=== PATIENT | female | born 1960 ===

== ENCOUNTER 2024-11-23 18:19 | Outpatient (REF) | payer MEDICAID, SELFPAY ==
[2024-11-23 16:30] LABS: Abs Immature Grans 0.04 10^3/uL (0.0-0.06); HCT 50.2 % (36.0-46.0); HGB 17.1 g/dL (11.2-15.7); Immature Grans % 0.4 %; MCH 32.8 pg (27.0-33.0); MCHC 34.1 % (32.0-36.0); MCV 96 fL (80-95); MPV 10.4 fL (8.0-11.0); Platelet Count 244 10^3/uL (130-400); RBC 5.21 10^6/uL (3.93-5.22); RDW 12.1 % (11.7-14.6); RDW-SD 43.3 fL; WBC 10.30 10^3/uL (4.4-10.8)
[2024-11-23 16:47] LABS: ALT 50 U/L (14-59); AST 34 U/L (15-37); Albumin 3.7 g/dL (3.4-5.0); Alkaline Phosphatase 116 U/L (46-116); Anion Gap 8.1 mmol/L (3-11); BUN 23 mg/dL (7-18); Bilirubin, Total 0.3 mg/dL (0.2-1.0); CO2 24.9 mmol/L (21.0-32.0); Calcium 10.5 mg/dL (8.5-10.1); Calculated LDL 159 mg/dL (<100); Chloride 107 mmol/L (98-107); Cholesterol 268 mg/dL (<200); Estimated GFR 56.46 (mL/min/1.73m2); Glucose 120 mg/dL (74-106); HDL Cholesterol 58 mg/dL (>or=50); Potassium 4.2 mmol/L (3.5-5.1); Sodium 140 mmol/L (136-145); TSH (W/Ref FT4) 0.82 uIU/mL (0.36-3.74); Total Protein 7.3 g/dL (6.4-8.2); Triglyceride 257 mg/dL (<150)
[2024-11-23 16:56] LABS: Hemoglobin A1C 5.7 % (<5.7)
== END 2024-11-23 18:20 | disposition home or self-care (01) ==
LOC: NCHCN 18:19
PROVIDERS: Visit Provider Nurse Practitioner Family
DX: Z00.00 Encounter for general adult medical examination without abnormal findings (principal)
CPT/HCPCS: 80053; 80061; 83036; 84443; 85025

== ENCOUNTER 2024-12-19 14:56 | Outpatient (REF) | payer MEDICAID, SELFPAY ==
[2024-12-19 16:41] LABS: HCT 50.2 % (36.0-46.0); HGB 17.2 g/dL (11.2-15.7); MCH 32.4 pg (27.0-33.0); MCHC 34.3 % (32.0-36.0); MCV 95 fL (80-95); MPV 10.3 fL (8.0-11.0); Platelet Count 244 10^3/uL (130-400); RBC 5.31 10^6/uL (3.93-5.22); RDW 12.0 % (11.7-14.6); RDW-SD 42.2 fL; WBC 10.67 10^3/uL (4.4-10.8)
[2024-12-19 17:49] LABS: ALT 60 U/L (14-59); AST 34 U/L (15-37); Albumin 3.6 g/dL (3.4-5.0); Alkaline Phosphatase 113 U/L (46-116); Anion Gap 9.8 mmol/L (3-11); BUN 22 mg/dL (7-18); Bilirubin, Total 0.6 mg/dL (0.2-1.0); CO2 26.2 mmol/L (21.0-32.0); Calcium 10.5 mg/dL (8.5-10.1); Chloride 105 mmol/L (98-107); Estimated GFR 63.30 (mL/min/1.73m2); Glucose 133 mg/dL (74-106); Potassium 4.9 mmol/L (3.5-5.1); Sodium 141 mmol/L (136-145); Total Protein 7.0 g/dL (6.4-8.2)
== END 2024-12-19 14:57 | disposition home or self-care (01) ==
LOC: NCHCN 14:56
PROVIDERS: PCP Nurse Practitioner Family; Visit Provider Nurse Practitioner Family
DX: R79.89 Other specified abnormal findings of blood chemistry (principal); E83.52 Hypercalcemia
CPT/HCPCS: 80053; 85027; 83970

== ENCOUNTER 2025-01-25 04:32 | Outpatient (CLI) | payer MEDICAID, SELFPAY ==
--- NOTE | 2025-01-25 | DI.CT_ITS ---
Exam(s) CT ABDOMEN WO/W EXAM: CT ABDOMEN WO/W CLINICAL HISTORY: FATTY LIVER K76.0 HEPATIC STEATOSIS LIVER LESION TECHNIQUE: Imaging Protocol: Axial computed tomography images with coronal and sagittal reformatted images were created and reviewed CONTRAST MATERIAL: Intravenous: Omnipaque 350 contrast volume:75 mL Oral: No COMPARISON: No exams were available for comparison FINDINGS: ABDOMEN: Lung Bases: Prominent three-vessel coronary artery calcification is present. Liver: There is diffuse decreased attenuation of the liver consistent with fatty infiltration. Focal fatty sparing is seen around the gallbladder fossa. There are 2 round lesions the dome of the right lobe of the liver. The larger measures 7 mm and is more medial. The smaller measures 6 mm and is more lateral. (Series 14, image 11). They follow the aorta on all sequences. These likely reflect benign lesion such as hemangiomas. There are no suspicious hepatic masses present. The liver measures 18 cm long. Portal, Superior Mesenteric, and Splenic Veins: Unremarkable. Gallbladder and Biliary Tract: No radiodense calculus or dilation. Pancreas: There is largely fatty replacement of the pancreatic head. There is no evidence of a pancreatic mass or peripancreatic fluid collection. Spleen: Normal. Adrenals: No masses seen. Kidneys: Normal size, contour and axis. No radiodense stones or obstructive uropathy. There is a 0.9 x 0.8 cm fat density lesion in the right renal cortex consistent with a benign lesion such as a angiomyolipoma. There are no suspicious renal lesions. There are few tiny hypodensities seen in the kidneys. They are too small for further characterization but likely reflect small cysts. No follow-up is recommended. Abdominal Aorta: Abdominal portion non-dilated. Atherosclerotic calcification is present. Bowel: There is diverticulosis in the colon without evidence of acute diverticulitis. There is no evidence of bowel obstruction or bowel wall thickening. Peritoneal Cavity: No ascites, collection or mesenteric inflammatory response. No free air. Lymph Nodes: Within normal limits. Bones: Within normal limits for the patient's age. Soft Tissues: There is a small fat containing umbilical hernia. IMPRESSION: 1. Hepatic steatosis and mild hepatomegaly. 2. Two enhancing lesions in the right lobe. The characteristics are suggestive of a benign lesion such as hemangiomas. 3. Colonic diverticulosis without evidence of acute diverticulitis. 4. 0.9 cm fat density right renal lesion consistent with a benign process such as an angiomyolipoma. RADIATION DOSE DELIVERED: 1,595.74mGy.cm Total DLP DATA REPOSITORY: All CT scans at this facility are submitted to the National Radiology Data Registry (NRDR) Dose Index Registry (DIR) with the [employer] ([employer]). RADIATION OPTIMIZATION: All CT scans at this facility use at least one of these dose optimization techniques: automated exposure control; mA and/or kV adjustment per patient size (includes targeted exams where dose is matched to clinical indication); or iterative reconstruction.
--- NOTE | 2025-01-25 11:45 | DI.MAMMO_ITS ---
Exam(s) MAMMO SCREENING EXAM: MAMMO SCREENING CLINICAL HISTORY: SCREENING MAMMO Z12.31 TECHNIQUE: Bilateral full field digital CC and MLO mammographic images were obtained with 3D tomosynthesis and utilizing computer aided detection (CAD). COMPARISON: There are no priors for comparison. FINDINGS: Masses/Architectural Distortion: No suspicious masses or areas of architectural distortion are present. Microcalcifications: No suspicious pleomorphic-type are seen. Skin Thickening/Nipple Retraction: None. IMPRESSION: 1. No specific features of malignancy are noted. 2. Unless there is more urgent need, screening mammography is recommended, as per [employer] guidelines. BI-RADS Category 1 - Negative Breast Density - Category B - There are scattered areas of fibroglandular density. Breast density Category C or D implies that the patient has dense breast tissue. Dense breast tissue can make it harder to find cancer on a mammogram. Dense breast tissue is also associated with an increased risk of breast cancer. This information about the result of the mammogram report was provided to the patient to raise their awareness. Use this report when you speak with the patient about their risks for breast cancer, which includes their family history. At that time, you may recommend additional screening tests (Ultrasound or MRI) as these tests may add significant information. A negative radiographic report should not delay biopsy if a dominant or clinically suspicious mass is present. Up to ten percent of cancers are not identified on mammography. A negative report may reinforce clinical impression. Adenosis and dense breasts may obscure an underlying neoplasm. False positive reports average 6 to 10%. Patient will receive a letter notifying them of these results.
[2025-01-25] MEDS: Normal Saline - Diluent 50 ML VIAL IJ (12:09)
[2025-01-25] MEDS: Normal Saline Flush 10 ML SYR IVP (12:10)
[2025-01-25] MEDS: Omnipaque 350 MG/ML 100 ML BTL IJ (12:11)
== END 2025-01-25 04:52 ==
PROVIDERS: PCP Nurse Practitioner Family; Visit Provider Nurse Practitioner Family
DX: Z12.31 Encounter for screening mammogram for malignant neoplasm of breast (principal); K76.0 Fatty (change of) liver, not elsewhere classified; R16.0 Hepatomegaly, not elsewhere classified; K57.30 Diverticulosis of large intestine without perforation or abscess without bleeding
CPT/HCPCS: 77063; 77067; 74170; J3490

== ENCOUNTER → 2025-02-28 01:19 | Outpatient (CLI) | payer MEDICAID, SELFPAY ==
--- NOTE | 2025-02-28 08:29 | DI.US_ITS ---
APPROVED REPORT EXAM: Comprehensive 2D, Doppler, and color-flow Echocardiogram Patient Location: Out-Patient Freelance Programmer/App Developer: Kinjal Werner RDCS (AE) Indications: CAD, HLD, HTN Other Information Study Quality: Adequate Conclusion Mild concentric left ventricular hypertrophy. Ejection fraction is 60%. Wall motion is normal Normal right ventricular size and function Mildly enlarged left atrium. Normal right atrial size Mild mitral annular calcification. Mild mitral regurgitation Estimated right ventricular systolic pressure is 26 mmHg Ascending aorta measures 3.5 cm Wall motion Left Ventricle The left ventricle is normal size. The left ventricular systolic function is normal. The left ventricular ejection fraction is within the normal range. Mild concentric left ventricular hypertrophy. There is normal LV segmental wall motion. There is no ventricular septal defect visualized. LVEF is 60%. Right Ventricle The right ventricle is normal size. The right ventricular systolic function is normal. Atria Left atrium is mildly dilated. The right atrium size is normal. The interatrial septum is intact with no evidence for an atrial septal defect. Aortic Valve The aortic valve is normal in structure. Aortic valve is trileaflet. There is no aortic valvular stenosis. No aortic regurgitation is present. Mitral Valve Mild mitral annular calcification. No evidence of mitral valve stenosis. Mild mitral regurgitation. Tricuspid Valve The tricuspid valve is normal in structure. There is no tricuspid valve stenosis. Trace tricuspid regurgitation. The RVSP is 25.9 mmHg. Pulmonic Valve The pulmonary valve is normal in structure. There is no pulmonic valvular stenosis. Trace pulmonic regurgitation. Great Vessels The aortic root is normal in size. The ascending aorta is mildly dilated. Aortic arch is normal in caliber. IVC is normal in size and collapses >50% with inspiration. Pericardium There is no pericardial effusion. 2D Dimensions IVSD d PLAX 1.33 cm F: 0.6-1.0 Ao Root d 2.57 cm F: 2.7 - 3.3 LVPW d PLAX 1.09 cm F: 0.6 - 1.0 Ao Asc Diam d 3.50 cm F: 2.3 - 3.1 LVID d PLAX 4.08 cm F: 3.8 - 5.2 LVDs 2.85 cm F: 2.2 - 3.5 LV EF Teichholz 57.7 % FS 30.02 % LV EDV (Teich) 73.2 mL LV ESV (Teich) 30.9 mL M-Mode TAPSE 1.59 cm (M/F) >1.7 Auto EF LV EDV A4C 96.2 mL LV EDV A2C 108.8 mL LV EDV BP 103.9 mL LV ESV A4C 39.8 mL LV ESV A2C 44.3 mL LV ESV BP 42.2 mL LVEF(%) A4C 58.7 % LVEF(%) A2C 59.3 % LVEF(%) BP 59.4 % LV SV A4C 56.5 ml LV SV A2C 64.5 ml LV SV BP 61.8 ml LV CO A4C 3.3 L/min LV CO A2C 3.7 L/min LV CO BP 3.5 L/min HR A4C 59.21 BPM HR A2C 58.16 BPM LV EDV Index (BP) LA Volume LA Length A4C 5.3 cm LA Length A2C 5.4 cm LA Area A4C s 21.43 cm2 LA Area A2C s 21.50 cm2 LA Vol A4C A-L 73.07 mL LA Vol A2C A-L 72.54 mL LA Vol Biplane A-L 73.3 mL LA Vol/BSA A4C A-L LA Vol/BSA A2C A-L LA Vol/BSA BP A-L 41.2 mL/m2 LA Vol A4C MOD 68.6 mL LA Vol A2C MOD 69.0 mL LA Vol BP MOD 68.6 mL RA Volume RA Area A4C 10.0 cm2 RA ESV A4C (A-L) 20.3mL RA Vol/BSA A4C A-L RA Length A4C 4.2 cm RA ESV A4C (MOD) 20.5mL LV Diastology MV E' medial 0.056 (>0.07 m/s) MV E Vmax 1.06 (0.4-1.3 m/s) MV E/E' MED 18.84 (<14) MV A Vmax 0.90 (0.4-1.3 m/s) MV E' lateral 0.062 (>0.1 m/s) E/A Ratio 1.2 MV E/E' LAT 17.20 (<14) MV E' Average 0.059 m/s MV E/E'(average) 17.98 Aortic Valve AoV Vmax 1.47 m/s LVOT Vmax 1.19 m/s AoV Peak Grad 8.7 mmHg LVOT Peak Grad 5.7 mmHg AoV Area (Vmax) 2.20 cm2 LVOT VTI 0.264 m AoV VTI 0.338 m LVOT Mean Grad 3.2 mmHg AoV Mean Dell. 1.06 m/s LVOT SV 71.58 mL AoV Mean Grad 5.1 mmHg LVOT Diam s 1.85 cm AoV Area (VTI) 2.12 cm2 AV Regurg Peak Gr. 8.66 mmHg Velocity Ratio 0.81 Mitral Valve MV DT 256 (160-240 msec) MV Vmax TIPS 1.05 m/s MV Mean Grad 1.8 (<2mmHg) MV VTI 0.393 m Pulmonary Valve PV Vmax 0.77 (0.5-1.5 m/s) RVOT Vmax 0.63 m/s PV Peak Grad 2.4 mmHg RVOT Peak Gr. 1.6 mmHg PV Mean Dell 0.62 m/s RVOT VTI 0.165 m PV Mean Grad 1.7 mmHg RVOT Mean Gr. 1.2 mmHg Tricuspid Valve RA Pressure 3.00 mmHg TR Vmax 2.39 m/s TV S' 0.07 m/s TR Peak Grad 22.8 mmHg RVSP (TR) 25.9 mmHg
== END ==
LOC: DI 01:19
PROVIDERS: PCP Nurse Practitioner Family; Visit Provider Registered Nurse
DX: I25.10 Atherosclerotic heart disease of native coronary artery without angina pectoris (principal); I10 Essential (primary) hypertension; I51.7 Cardiomegaly
CPT/HCPCS: 93306